=== PATIENT | male | born 1945 | race Caucasian/White ===

== ENCOUNTER → 2019-01-19 | Outpatient (CLI) | payer MEDICARE, OTHER ==
[2015-03-03 10:10] VITALS: BP 122/87
[~2019-01-19] MED LIST: CALC1TAB75 PO; CALC600T4 PO; CARV25TA PO; CHOL200074 PO; CHOL5000 PO; CONTRAST GIVEN MC PRN; GABA600T7 PO; IOHEXOL 240 MG/ML 50ML VIAL. ONE; IOHEXOL 300 MG/ML 75 ML VIAL. IV ONE; LEVO200T PO; MELO15TA6 PO; META-21 PO; OXYC1TAB15 PO; RAMI5CAP50 PO; RIVA20TA2 PO; TRAM100T30 PO; TRAM50TA PO; celebrex
--- NOTE | 2019-01-19 16:33 | RAD ---
CT CHEST ABD PELVIS W/CONTRAST Indication: Non hodgkins lymphoma Technique: Postcontrast CT imaging was performed of the chest, abdomen, pelvis, multiplanar reconstruction images submitted. One or more of the following individualized dose reduction techniques were utilized for this examination: 1. Automated exposure control 2. Adjustment of the mA and/or kV according to patient size 3. Use of iterative reconstruction technique. Comparison: February 07, 2015 CT abdomen pelvis exam, no previous chest exam available CHEST: Findings: There is tiny 2 to 3 mm subpleural right upper lobe nodule image 33 series 4, 3 mm right lower lobe nodule image 71 series 4, 2 mm right middle lobe nodule image 72 series 4, 2 mm left lower lobe nodule image 78, 3 to 4 mm left lower lobe nodule image 67, 2 mm nodule left lower lobes image 64. There is no infiltrate, pleural or pericardial effusion, pneumothorax. There is some coronary calcification. No significantly enlarged nodes are identified of the chest. IMPRESSION: 1. There are small pulmonary nodules as stated with the largest about 4 mm. There is no significant chest lymphadenopathy. 2. There is coronary calcification. Abdomen pelvis FINDINGS: 7 mm hypodense lesion of the left lobe of the liver is similar otherwise difficult to accurately characterize. No new lesion is identified of the liver, spleen, pancreas. Gallbladder is present without obvious intraluminal abnormality by CT. There is no adrenal nodularity. Both kidneys enhance, no hydronephrosis. Small 9 mm hypodense lesion of the right kidney is somewhat larger as previously about 6 mm although otherwise too small to accurately characterize, density measurements more cystlike about 14 Hounsfield units. No significantly enlarged nodes are identified of the abdomen or pelvis. Bowel is not dilated. There is some laxity of the fascia near the umbilicus with underlying small bowel as seen previously. There is multilevel lumbar degenerative disc disease. There is grade 1 anterior spondylolisthesis at L4-5. There is multilevel lumbar facet degenerative change. There is lumbar neural foramina compromise greatest on the right at L4-5. IMPRESSION: 1. There is no new significant lymphadenopathy of the abdomen or pelvis. Small hypodense lesion of the right kidney is most likely a small cyst, small hypodense lesion of the liver similar. Electronically signed by: Brian Marina MD (01/19/2019 4:30 PM) [id number]
== END | disposition home or self-care (01) ==
LOC: CT 09:59
PROVIDERS: ATTEND Internal Medicine Hematology & Oncology
DX: R91.8 Other nonspecific abnormal finding of lung field (principal); I25.10 Atherosclerotic heart disease of native coronary artery without angina pectoris; M43.16 Spondylolisthesis, lumbar region; M51.36 Other intervertebral disc degeneration, lumbar region; C88.0 Waldenstrom macroglobulinemia
CPT/HCPCS: 71260; 74177; Q9967

== ENCOUNTER → 2019-06-18 | Outpatient (CLI) | payer MEDICARE, OTHER ==
[2015-03-03 10:10] VITALS: BP 122/87
[~2019-06-18] MED LIST changes: -CONTRAST GIVEN MC PRN; -IOHEXOL 240 MG/ML 50ML VIAL. ONE
--- NOTE | 2019-06-18 10:09 | RAD ---
CT CHEST W/CONTRAST Indication: Non-Hodgkin's lymphoma, lung nodule follow-up Technique: Postcontrast CT imaging was performed of thechest, multiplanar reconstruction images submitted. One or more of the following individualized dose reduction techniques were utilized for this examination: 1. Automated exposure control 2. Adjustment of the mA and/or kV according to patient size 3. Use of iterative reconstruction technique. Comparison: January 19, 2019 Findings: There are residual small bilateral pulmonary nodules. Stable nodules as referenced to axial series 4 include: 2 to 3 mm left lower lobe image 71, 3 mm subpleural left lower lobe nodule image 66, 2 nodules of the left lower lobe image 62 with the largest about 4 mm, 2 mm subpleural left lower lobe nodule image 59, small left lower lobe nodule about 1 to 2 mm image 59, 2-3 mm left upper lobe nodule image 26, a couple of tiny about 1 mm left upper lobe nodules image 26. Approximate 4 mm right lower lobe nodule image 57 is somewhat more prominent when comparing sagittal images 110 with previous image 111 when measured about 2 to 3 mm. 2 to 3 mm fairly dense right middle lobe nodule axial image 58 is slightly more apparent. Approximate 5 mm subpleural right upper lobe nodule axial image 22 is somewhat more apparent on this exam as previously about 3 to 4 mm. Mild increased subpleural dependent density bilaterally is likely component of mild atelectasis. There is no pericardial or pleural fluid or pneumothorax. There is again coronary calcification. There is no dissection flap of the thoracic aorta. There is no new significant chest lymphadenopathy. There is 2 cm transverse by 1.3 cm AP by 1.5 cm cc hyperdense focus near the margin of the liver at the posterior margin of the gallbladder fossa as seen previously, more likely vascular in etiology and stable dating back to 2014 exam. Tiny hypodense lesion of the left lobe of liver closer to the dome about 0.6 cm is similar. There is likely degree of hepatic steatosis. Impression: 1. There are persistent small bilateral pulmonary nodules as stated, a few which are somewhat larger than January 2019 exam for which continued short-term follow-up such as in 6 months advised. 2. There is no new significant chest lymphadenopathy. 3. There is coronary calcification. Electronically signed by: Brian Marina MD (06/18/2019 10:06 AM) [id number]
== END | disposition home or self-care (01) ==
LOC: CT 08:55
PROVIDERS: ATTEND Internal Medicine Hematology & Oncology
DX: C88.0 Waldenstrom macroglobulinemia (principal); R91.8 Other nonspecific abnormal finding of lung field; I25.10 Atherosclerotic heart disease of native coronary artery without angina pectoris
CPT/HCPCS: 71260; Q9967

== ENCOUNTER → 2019-10-15 | Outpatient (CLI) | payer MEDICARE, OTHER ==
[2015-03-03 10:10] VITALS: BP 122/87
[~2019-10-15] MED LIST changes: -CALC600T4 PO; +CALC600T6 PO; +IOHEXOL 240 MG/ML 50ML VIAL. ONE; +IOHEXOL 240 MG/ML 50ML VIAL. PO ONE
--- NOTE | 2019-10-15 16:20 | RAD ---
CT scan of the chest, abdomen and pelvis with contrast 10/15/2019 CLINICAL HISTORY: Non-Hodgkin's lymphoma. TECHNIQUE: After the oral and intravenous administration contrast, contiguous, 3 mm axial sections were obtained through the chest, abdomen and pelvis. 75 cc of Omnipaque 300 were administered intravenously during this examination. One or more of the following individualized dose reduction techniques were utilized for this study: 1. Automated exposure control. 2. Adjustment of the mA and/or kV according to patient size. 3. Use of iterative reconstruction technique. FINDINGS: Comparison is made to the patient's CT scan of the chest dated 06/18/2019. Additional comparison is made to the patient's CT scan of the abdomen and pelvis dated 01/19/2019. Atherosclerotic calcification of the thoracic aorta and its branches is noted. The thoracic aorta is mildly tortuous but tapers normally. There is mild cardiomegaly. Scattered coronary artery calcifications are seen. Small calcified lymph nodes are seen. No hilar, mediastinal or axillary lymphadenopathy is noted. Calcified pleural plaques are again seen bilaterally. Small noncalcified nodules are seen involving both lungs which measure 2 mm to 5 mm in size. They are unchanged. No new pulmonary nodule is seen. No area of consolidation is noted. No pneumothorax or pleural effusion is seen. A 9 mm rounded low-attenuation lesion is seen involving the liver consistent with a hepatic cyst. It is unchanged. The spleen, pancreas, and adrenal glands are within normal limits. Rounded low-attenuation lesions are seen involving the lower poles of both kidneys, right greater than left. These measure 9 mm and 6 mm in size. They likely represent cysts. They're unchanged. No further imaging workup is recommended. Atherosclerotic calcification of the abdominal aorta and its branches is noted. The abdominal aorta tapers normally. The gallbladder is contracted. No free fluid or free air is seen within the abdomen. Air and stool are seen throughout the colon. The appendix is well-visualized and is within normal limits. There is no evidence of bowel obstruction. No retroperitoneal lymphadenopathy is seen. Images through the pelvis demonstrate the urinary bladder to be contracted. Calcifications are seen within the pelvis consistent with phleboliths. No pelvic or inguinal lymphadenopathy is seen. No free fluid is noted. Very mild S-shaped curvature of the thoracolumbar spine is seen. Degenerative changes are seen involving the thoracic and throughout the lumbar spine along with both hips. IMPRESSION: No acute abnormality is seen. There is no CT evidence of recurrent or metastatic disease involving the chest, abdomen or pelvis. Electronically signed by: Herminio Valdivia MD (10/15/2019 4:18 PM) [id number]
== END | disposition home or self-care (01) ==
LOC: CT 09:02
PROVIDERS: ATTEND Nurse Practitioner Family
DX: C88.0 Waldenstrom macroglobulinemia (principal); I70.0 Atherosclerosis of aorta; Q25.46 Tortuous aortic arch; I51.7 Cardiomegaly; I25.10 Atherosclerotic heart disease of native coronary artery without angina pectoris; J94.8 Other specified pleural conditions; R91.8 Other nonspecific abnormal finding of lung field; K76.9 Liver disease, unspecified; K76.89 Other specified diseases of liver; M43.8X5 Other specified deforming dorsopathies, thoracolumbar region; M47.815 Spondylosis without myelopathy or radiculopathy, thoracolumbar region; M16.0 Bilateral primary osteoarthritis of hip
CPT/HCPCS: 71260; 74177; Q9966; Q9967

== ENCOUNTER → 2019-12-14 | Outpatient (CLI) | payer MEDICARE, OTHER ==
[2015-03-03 10:10] VITALS: BP 122/87
[~2019-12-14] MED LIST changes: -IOHEXOL 240 MG/ML 50ML VIAL. ONE; -IOHEXOL 240 MG/ML 50ML VIAL. PO ONE; -IOHEXOL 300 MG/ML 75 ML VIAL. IV ONE
[2019-12-14 10:29] LABS: CALCIUM 9.3 mg/dL (8.5-10.1); CREATININE 1.4 mg/dL (0.7-1.3); GFR 49.8; POTASSIUM 4.7 mmol/L (3.5-5.1)
== END ==
LOC: LAB 08:57
PROVIDERS: ATTEND Internal Medicine
DX: I48.91 Unspecified atrial fibrillation (principal)
CPT/HCPCS: 36415; 80048

== ENCOUNTER → 2020-06-26 | Outpatient (CLI) | payer MEDICARE, OTHER ==
[2015-03-03 10:10] VITALS: BP 122/87
[~2020-06-26] MED LIST changes: +CALC-628 PO; -CALC1TAB75 PO; -CALC600T6 PO; +CALC600T60 PO; +IOHEXOL 240 MG/ML 50ML VIAL. ONE; +IOHEXOL 240 MG/ML 50ML VIAL. PO ONE
[2020-06-26] MEDS: IOHEXOL 300 MG/ML 75 ML VIAL. IV ONE (10:51)
--- NOTE | 2020-06-26 11:57 | RAD ---
CT of the chest abdomen and pelvis with contrast Indication: [Follow-up Waldenstrom macroglobulinemia, non-Hodgkin's lymphoma,] Comparison study: [CT of the chest abdomen and pelvis October 15, 2019] Technique: Multidetector CT imaging of the chest abdomen and pelvis was performed following the admin istration of intravenous contrast. Multiple reconstructions including sagittal and coronal reconstru ction were created on an independent workstation and reviewed. Findings: Heart size is normal. No significant pericardial effusion is seen. No pathologic mediastinal adenopa thy is identified. No focal consolidation or infiltrate is seen. No pneumothorax or pleural effusion is seen. No acute osseous abnormality is identified. Limited visualization of the upper abdomen demon strates no acute abnormality. The liver, gallbladder, spleen, bilateral adrenal glands, bilateral kidneys, and pancreas, demonstrat e no acute change. There is no bowel obstruction. No evidence of acute inflammatory change involving visualized bowel is identified. Appendix is visualized and unremarkable in appearance. Bladder is dec ompressed. No free fluid or free air is seen in the abdomen or pelvis. No acute osseous changes are identified. Degenerative changes of thoracic lumbar spine noted. Impression: Stable appearance of the chest abdomen and pelvis without evidence of acute normality CT DOSING PQRS STATEMENT: One or more of the following individualized dose reduction techniques were utilized for this examinat ion: 1. Automated exposure control 2. Adjustment of the mA and/or kV according to patient size 3. Use of iterative reconstruction technique Electronically signed by: Mauro Lorenzo MD (06/26/2020 11:55 AM) [id number]
== END ==
LOC: CT 09:40
PROVIDERS: ATTEND Nurse Practitioner Family
DX: C88.0 Waldenstrom macroglobulinemia (principal)
CPT/HCPCS: 71260; 74177; Q9967

== ENCOUNTER → 2021-06-29 | Outpatient (CLI) | payer MEDICARE, OTHER ==
[2015-03-03 10:10] VITALS: BP 122/87
[~2021-06-29] MED LIST changes: -IOHEXOL 240 MG/ML 50ML VIAL. ONE; -IOHEXOL 240 MG/ML 50ML VIAL. PO ONE; +IOHEXOL 300 MG/ML 75 ML VIAL. IV ONE; +IOHEXOL 300 MG/ML 75 ML VIAL. ONE
--- NOTE | 2021-06-29 14:58 | RAD ---
US BREAST RT History:Reason: RT BREAST PAIN X3 WEEKS; HX OF WALDENSTROMS MACROGLOBULINEMIA / Spl. Instructions: / History: Comparison: None Technique: Sonographic examination of the right breast was performed and multiple static images wer e obtained. Findings: No cystic or solid mass identified. Mild gynecomastia. Impression: 1. Mild gynecomastia. Recommend continued clinical follow-up and imaging follow-up if interval diaz e. BI-RADS Category 2: Benign. Electronically signed by: Americo Soliz DO (06/29/2021 2:56 PM) [id number]
--- NOTE | 2021-06-29 16:35 | RAD ---
EXAMINATION: CT chest, abdomen and pelvis with IV contrast. INDICATION:75 years, Male, non-Hodgkin's lymphoma. Follow-up exam. TECHNIQUE: Axial CT images of the chest, abdomen and pelvis were obtained. Coronal and sagittal refor matted performed. COMPARISON: 06/26/2020. Exposure: One or more of the following individualized dose reduction techniques were utilized for thi s examination: 1. Automated exposure control 2. Adjustment of the mA and/or kV according to patient size 3. Use of iterative reconstruction technique. FINDINGS: CHEST: Thyroid is not visualized. Unremarkable esophagus. No lymphadenopathy in the chest by size criteria. Normal cardiac size with no pericardial effusion. Moderate to severe coronary artery atherosclerotic calcifications. Left atrial appendage clip. Normal caliber thoracic aorta and pulmonary arteries. Central airways are patent. No focal lesion, pleural effusion or pneumothorax. Stable scattered subce ntimeter solid pulmonary nodules in both lower and left upper lobes. No new suspicious pulmonary nodu le. ABDOMEN/PELVIS: Unchanged subcentimeter hypodensity in the right hepatic lobe, too small to characterize. No suspicio us focal hepatic lesion. Gallbladder, biliary ducts, spleen, and adrenal glands are unremarkable. Mil dly atrophic pancreas with fat infiltration. No hydronephrosis or nephrolithiasis in either kidney. S ubcentimeter hypodensity in the left renal cortex, too small to characterize. Indeterminate 0.9 cm hy podense lesion in the anterior cortex of the lower pole right kidney, unchanged since multiple priors and most likely benign. No bowel obstruction. Normal appendix. Moderate aortoiliac atherosclerotic calcifications without dil ation. No pneumoperitoneum or ascites. No lymphadenopathy in the abdomen or pelvis by size criteria. Unremarkable urinary bladder and prostate. MUSCULOSKELETAL STRUCTURES: Postsurgical changes along the anterior abdominal wall. No acute osseous process or suspicious lesion . Multilevel degenerative changes in the spine. Grade 1 anterolisthesis of L4 over L5. IMPRESSION: 1. No lymphadenopathy in the chest, abdomen or pelvis. 2. Other chronic/incidental findings, as described above. Electronically signed by: Kathryn Conroy MD (06/29/2021 4:32 PM) [facility]
== END ==
LOC: CT 14:18
PROVIDERS: ATTEND Internal Medicine Hematology & Oncology
DX: N62 Hypertrophy of breast (principal); I25.10 Atherosclerotic heart disease of native coronary artery without angina pectoris; K86.89 Other specified diseases of pancreas; I70.0 Atherosclerosis of aorta; M47.816 Spondylosis without myelopathy or radiculopathy, lumbar region; M43.16 Spondylolisthesis, lumbar region
CPT/HCPCS: 71260; 74177; 76641; Q9967